=== PATIENT | male | born 1995 | race Two or more races ===

== ENCOUNTER 2021-06-18 18:35 | Emergency (ER) | payer OTHER ==
[2021-06-18 20:59] LABS: BASOPHIL 0.8 % (0-2); EOSINOPHIL 1.8 % (0-5); HCT 43.1 % (42.0-52.0); HGB 14.2 g/dl (13.2-18.0); LYMPHOCYTE 51.2 % (15-48); MCH 27.7 pg (25.0-31.0); MCHC 32.9 g/dL (32.0-36.0); MCV 84.2 fL (78.0-100.0); MONOCYTE 10.2 % (0-12); MPV 10.2 fL (6.0-9.5); NEUTROPHIL 35.7 % (41-80); NRBC 0; PLT 230 K/uL (150-400); RBC 5.12 M/uL (4.70-6.00); RDW 15.1 % (11.5-14.0); WBC 7.1 K/uL (4.0-10.5)
[2021-06-18 21:35] LABS: ALBUMIN 3.8 g/dL (3.4-5.0); BILIRUBIN - TOTAL 0.1 mg/dL (0.2-1.0); BUN/CREAT RATIO (CALC) 6.7 RATIO; CREATININE 0.9 mg/dL (0.67-1.17); GLOBULIN (CALCULATION) 3.3 g/dL; POTASSIUM 3.9 mmol/L (3.5-5.1); TOTAL PROTEIN 7.1 g/dL (6.4-8.2)
[2021-06-18 23:41] LABS: AMPHETAMINES NEGATIVE (NEGATIVE); BARBITURATES NEGATIVE (NEGATIVE); ECSTASY (MDMA) NEGATIVE (NEGATIVE); MARIJUANA (THC) POSITIVE (NEGATIVE); METHADONE NEGATIVE (NEGATIVE); OPIATES NEGATIVE (NEGATIVE); OXYCODONE NEGATIVE (NEGATIVE)
== END 2021-06-19 01:40 | disposition other institution (70) ==
LOC: FER 18:35
PROVIDERS: Nurse Practitioner Family
DX: F10.139 Alcohol abuse with withdrawal, unspecified (principal); I10 Essential (primary) hypertension; Z88.8 Allergy status to other drugs, medicaments and biological substances; Y90.8 Blood alcohol level of 240 mg/100 ml or more
CPT/HCPCS: 36415; 80053; 80305; 82150; 83690; 85025; 99284; G0480; J3411; J3475; J7030